=== PATIENT | female | born 1960 | race Two or more races ===

== ENCOUNTER 2017-08-28 07:11 | Outpatient (CLI) | payer OTHER | END 2017-08-28 07:24 | disposition home or self-care (01) | LOC: LAB 07:11 | DX: E55.9 Vitamin D deficiency, unspecified (principal); E03.8 Other specified hypothyroidism; E16.1 Other hypoglycemia ==

== ENCOUNTER 2017-12-27 07:15 | Outpatient (CLI) | payer OTHER | END 2017-12-27 08:21 | disposition home or self-care (01) | LOC: LAB 07:15 | DX: E03.8 Other specified hypothyroidism (principal) ==

== ENCOUNTER 2018-05-09 07:44 | Outpatient (CLI) | payer OTHER | END 2018-05-09 07:59 | disposition home or self-care (01) | LOC: LAB 07:44 | DX: E03.8 Other specified hypothyroidism (principal); E55.9 Vitamin D deficiency, unspecified; R73.01 Impaired fasting glucose ==

== ENCOUNTER 2018-07-17 07:09 | Outpatient (CLI) | payer OTHER | END 2018-07-17 07:50 | disposition home or self-care (01) | LOC: LAB 07:09 | DX: E03.8 Other specified hypothyroidism (principal); Z00.00 Encounter for general adult medical examination without abnormal findings; I10 Essential (primary) hypertension; E78.00 Pure hypercholesterolemia, unspecified; N39.0 Urinary tract infection, site not specified; Z11.4 Encounter for screening for human immunodeficiency virus [HIV]; Z12.11 Encounter for screening for malignant neoplasm of colon; E55.9 Vitamin D deficiency, unspecified; Z21 Asymptomatic human immunodeficiency virus [HIV] infection status; R79.89 Other specified abnormal findings of blood chemistry; R74.0 Nonspecific elevation of levels of transaminase and lactic acid dehydrogenase [LDH]; R10.13 Epigastric pain ==

== ENCOUNTER → 2018-07-17 | Outpatient (CLI) | payer OTHER | END | disposition home or self-care (01) | LOC: MAMO-SONO 08:45 → SONOGRAMA 08:55 | DX: R10.13 Epigastric pain (principal); Z12.11 Encounter for screening for malignant neoplasm of colon ==

== ENCOUNTER → 2018-09-11 07:20 | Outpatient (CLI) | payer OTHER | END | disposition home or self-care (01) | LOC: LAB 07:20 | DX: E03.8 Other specified hypothyroidism (principal); R73.02 Impaired glucose tolerance (oral); E78.2 Mixed hyperlipidemia ==

== ENCOUNTER 2018-10-10 07:22 | Outpatient (CLI) | payer OTHER | END 2018-10-10 08:21 | disposition home or self-care (01) | LOC: LAB 07:22 | DX: Z01.818 Encounter for other preprocedural examination (principal) ==

== ENCOUNTER 2018-10-19 05:23 | Day surgery (SDC) | payer OTHER ==
[~2018-10-19 05:23] MED LIST: SYNTHROID125 MCG PO
== END 2018-10-19 13:00 | disposition home or self-care (01) ==
LOC: CIR.AMB 05:23
DX: N84.0 Polyp of corpus uteri (principal)

== ENCOUNTER → 2018-12-26 07:17 | Outpatient (CLI) | payer OTHER | END | disposition home or self-care (01) | LOC: LAB 07:17 | DX: E03.8 Other specified hypothyroidism (principal); R73.02 Impaired glucose tolerance (oral); E78.2 Mixed hyperlipidemia; E55.9 Vitamin D deficiency, unspecified ==

== ENCOUNTER 2019-06-26 07:35 | Outpatient (CLI) | payer OTHER | END 2019-06-26 07:42 | disposition home or self-care (01) | LOC: LAB 07:35 | DX: E03.8 Other specified hypothyroidism (principal); R73.01 Impaired fasting glucose; E55.9 Vitamin D deficiency, unspecified ==

== ENCOUNTER → 2019-09-11 07:09 | Outpatient (CLI) | payer OTHER | END | disposition home or self-care (01) | LOC: LAB 07:09 | PROVIDERS: ATTEND Internal Medicine Endocrinology, Diabetes & Metabolism | DX: E03.8 Other specified hypothyroidism (principal); R73.01 Impaired fasting glucose ==

== ENCOUNTER → 2020-01-12 07:23 | Outpatient (CLI) | payer OTHER | END | disposition home or self-care (01) | LOC: LAB 07:23 | PROVIDERS: ATTEND Internal Medicine Endocrinology, Diabetes & Metabolism | DX: E03.8 Other specified hypothyroidism (principal); R73.01 Impaired fasting glucose; E16.1 Other hypoglycemia ==

== ENCOUNTER 2020-05-20 07:57 | Outpatient (CLI) | payer OTHER | END 2020-05-20 08:06 | disposition home or self-care (01) | LOC: LAB 07:57 | PROVIDERS: ATTEND Internal Medicine Endocrinology, Diabetes & Metabolism | DX: E03.8 Other specified hypothyroidism (principal); R73.02 Impaired glucose tolerance (oral); E78.2 Mixed hyperlipidemia ==

== ENCOUNTER → 2021-02-12 06:58 | Outpatient (CLI) | payer OTHER | END | disposition home or self-care (01) | LOC: LAB 06:58 | PROVIDERS: ATTEND Internal Medicine Endocrinology, Diabetes & Metabolism | DX: E03.8 Other specified hypothyroidism (principal); E78.2 Mixed hyperlipidemia; E55.9 Vitamin D deficiency, unspecified ==

== ENCOUNTER 2021-11-03 07:37 | Outpatient (CLI) | payer OTHER | END 2021-11-03 08:54 | disposition home or self-care (01) | LOC: LAB 07:37 | PROVIDERS: ATTEND Internal Medicine Endocrinology, Diabetes & Metabolism | DX: R73.01 Impaired fasting glucose (principal); E03.8 Other specified hypothyroidism; E78.2 Mixed hyperlipidemia ==

== ENCOUNTER 2022-04-16 11:24 | Outpatient (CLI) | payer OTHER | END 2022-04-16 11:32 | disposition home or self-care (01) | LOC: SONOGRAMA 11:24 | PROVIDERS: ATTEND Internal Medicine Endocrinology, Diabetes & Metabolism | DX: E04.2 Nontoxic multinodular goiter (principal) ==

== ENCOUNTER 2022-04-16 13:10 | Outpatient (CLI) | payer OTHER | END 2022-04-16 13:11 | disposition home or self-care (01) | LOC: NUCLEAR 13:10 | PROVIDERS: ATTEND Internal Medicine Endocrinology, Diabetes & Metabolism | DX: M85.80 Other specified disorders of bone density and structure, unspecified site (principal) ==

== ENCOUNTER 2022-08-10 08:12 | Outpatient (CLI) | payer OTHER | END 2022-08-10 08:22 | disposition home or self-care (01) | LOC: RAD 08:12 | PROVIDERS: ATTEND Ophthalmology | DX: R07.89 Other chest pain (principal) ==

== ENCOUNTER 2024-06-22 07:15 | Outpatient (CLI) | payer OTHER | END 2024-06-22 07:17 | disposition home or self-care (01) | LOC: SONOGRAMA 07:15 | PROVIDERS: ATTEND Internal Medicine Gastroenterology | DX: R10.11 Right upper quadrant pain (principal) ==